=== PATIENT | female | born 1990 | race Asian ===

== ENCOUNTER 2021-01-11 07:13 | Emergency (ER) | payer BC, SELFPAY ==
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
[2021-01-11 07:41] VITALS: BP 107/72; PULSE 79; RESP 18; TEMP 37.2; O2SAT 98
[2021-01-11] MEDS: Diphth,Pertus(ACell),Tet Adult 0.5 ML SYRINGE IM (08:00)
== END 2021-01-11 08:07 | disposition home or self-care (01) ==
PROVIDERS: Emergency Provider Emergency Medicine; PCP Nurse Practitioner Family
DX: T23.221A Burn of second degree of single right finger (nail) except thumb, initial encounter (principal); T31.0 Burns involving less than 10% of body surface; X11.8XXA Contact with other hot tap-water, initial encounter; Y93.9 Activity, unspecified; Y92.009 Unspecified place in unspecified non-institutional (private) residence as the place of occurrence of the external cause; Y99.9 Unspecified external cause status
CPT/HCPCS: 16020; 90471; 90715; 99284